=== PATIENT | male | born 1995 | race African-American/Black ===

== ENCOUNTER 2021-11-25 21:47 | Inpatient (IN) | payer OTHER, SELFPAY ==
[~2021-11-25 21:47] MED LIST: ISOVUE-370 76%-LOCM 1 ML ONE
[2021-11-25] MEDS ORDERED: Boostrix 0.5 ML (Tdap) VIAL ONE (21:53)
[2021-11-25] MEDS ORDERED: Ketamine 50 MG/ML (10ML VIAL) ONE ×2 (21:55→22:28)
[2021-11-25] MEDS ORDERED: Midazolam HCl 2 mg/2 ml Vial ONE (22:28)
[2021-11-25] MEDS ORDERED: fentaNYL Citrate/PF 100 MCG/2 ML SYRINGE ONE (22:28)
[2021-11-25] MEDS ORDERED: Neomycin-Polymyxin 1 ML AMP ONE (22:45)
[2021-11-25] MEDS ORDERED: Ondansetron ODT 4 MG TAB PO PRN (22:54)
[2021-11-25] MEDS ORDERED: Dextrose 5% in Water 1,000 ML IV PRN (22:54)
[2021-11-25] MEDS ORDERED: Morphine 4 MG/ML VIAL SLOW IVP PRN (22:54)
[2021-11-25] MEDS ORDERED: hydrALAZINE 20 MG/ML VIAL SLOW IVP PRN (22:54)
[2021-11-25] MEDS ORDERED: Ondansetron PF 4 MG/2 ML Vial IVP PRN (22:54)
[2021-11-25] MEDS ORDERED: Dextrose 50% Abboject 50 ML SYRINGE SLOW IVP PRN (22:54)
[2021-11-25] MEDS ORDERED: Morphine 2 MG/ML VIAL SLOW IVP PRN (22:54)
[2021-11-25] MEDS ORDERED: Sodium Chloride 0.9% 1,000 ML IV SCH (23:00)
[2021-11-25 23:03] LABS: Hemoglobin 15.2 g/dL (14.0-18.0); Mean Corpuscular HGB CONC 32.7 g/dL (32.0-36.0); Mean Corpuscular Hemoglobin 30.7 pg (27.0-31.0); Mean Corpuscular Volume 93.8 fL (78.0-98.0); Platelet Count 179 thou/uL (130-400); RBC Distribution Width 11.8 % (11.5-14.5); Red Blood Cell (RBC) Count 4.96 mill/uL (4.70-6.10); White Blood Cell (WBC) Count 20.7 thou/uL (4.8-10.8)
[2021-11-25] MEDS ORDERED: traMADol HCl 50 MG TAB PO PRN (23:06)
[2021-11-25] MEDS ORDERED: Cyclobenzaprine 10 MG TAB PO PRN (23:06)
[2021-11-25 23:11] LABS: INR-International Normal Ratio 1.2; PTT 24.4 sec (22.9-36.1); Prothrombin Time 15.7 sec (12.0-14.7)
[2021-11-25] MEDS ORDERED: CEFAZOLIN 2 GM in Sodium Chloride 0.9% 100 ML IVPB SCH (23:15)
[2021-11-25 23:20] LABS: SARS-CoV-2 NAA Rapid Test Not Detected (NotDetected)
[2021-11-25 23:22] LABS: ALT (SGPT) 26 U/L (8-55); AST (SGOT) 32 U/L (5-34); Albumin 4.1 g/dL (3.5-5.0); Alcohol Less than 10 mg/dL (Less than 10); Alkaline Phosphatase 54 U/L (40-110); Anion Gap 17 mmol/L (10-20); BUN (Urea Nitrogen) 16 mg/dL (8.9-20.6); Bilirubin, Total 1.3 mg/dL (0.2-1.2); Calc. Creatinine Clearance 0 mL/min (70-130); Calcium 8.9 mg/dL (7.8-10.44); Carbon Dioxide 20 mmol/L (22-29); Chloride 104 mmol/L (98-107); Globulin 2.9 g/dL (2.4-3.5); Glucose 118 mg/dL (70-105); Lipase 35 U/L (8-78); Sodium 138 mmol/L (136-145)
[2021-11-25 23:24] LABS: Band 9 % (5-11); Lymphocytes 6 % (21-51); MDiff Complete? YES; Metamyelocyte 1 % (0-0); Monocytes 7 % (0-10); Neutrophil 75 % (42-75); Reactive Lymphocytes 2 % (0-10)
[2021-11-25 23:28] LABS: Potassium 2.9 mmol/L (3.5-5.1)
[2021-11-25] MEDS ORDERED: TETANUS AND DIPHTHERIA TOX/PF 0.5 ML DISP.SYRIN IM ONE (23:30)
[2021-11-25] MEDS ORDERED: Tranexamic Acid 1,000 MG/10 ML VIAL ONE (23:34)
[2021-11-25] MEDS ORDERED: HYDROmorphone 2 MG/ML VIAL ONE (23:37)
[2021-11-26] MEDS ORDERED: Ondansetron HCl/PF 4 MG/2 ML Vial IVP PRN (01:03)
[2021-11-26] MEDS ORDERED: Promethazine HCl 25 MG/ML VIAL IVPB PRN (01:03)
[2021-11-26] MEDS ORDERED: HYDROmorphone 2 MG/ML VIAL SLOW IVP PRN (01:03)
[2021-11-26] MEDS ORDERED: Meperidine HCl/PF 25 MG/ML VIAL SLOW IVP PRN (01:03)
[2021-11-26] MEDS ORDERED: Promethazine HCl 25 MG/ML VIAL IM PRN (01:03)
[2021-11-26] MEDS ORDERED: Meperidine HCl/PF 25 MG/ML VIAL ONE (01:17)
[2021-11-26] MEDS ORDERED: HYDROmorphone 0.5 MG/0.5 ML SYRINGE ONE ×2 (01:36→02:24)
[2021-11-26] MEDS ORDERED: Fentanyl 100 MCG/2 ML VIAL ONE (01:36)
[2021-11-26] MEDS: Acetaminophen 500 MG TAB PO SCH ×5 (03:30→23:45)
[2021-11-26] MEDS: traMADol HCl 50 MG TAB PO SCH ×5 (03:30→23:45)
[2021-11-26] MEDS: Potassium Chloride 20 MEQ in Premix Bag 1 BAG IVPB SCH ×2 (03:31→04:51)
[2021-11-26 03:44] VITALS: BMI 24.3
[2021-11-26 04:50] LABS: Lactic Acid 4.1 mmol/L (0.5-2.2)
[2021-11-26] MEDS ORDERED: Sodium Chloride 0.9% 1,000 ML IV SCH (05:45)
[2021-11-26 05:48] LABS: #Lymphocytes 0.5 thou/uL (1.20-3.40); #Monocytes 0.3 thou/uL (0.11-0.59); #Neutrophils 13.3 thou/uL (1.40-6.50); %Eosinophils 0.3 % (0.0-10.0); %Lymphocytes 3.3 % (21.0-51.0); %Monocytes 1.8 % (0.0-10.0); %Neutrophils 94.6 % (42.0-75.0); Hemoglobin 14.1 g/dL (14.0-18.0); Mean Corpuscular Hemoglobin 30.8 pg (27.0-31.0); Mean Corpuscular Volume 96.4 fL (78.0-98.0); Mean Platelet Volume 9.4 fL (7.4-10.4); Platelet Count 128 thou/uL (130-400); RBC Distribution Width 11.8 % (11.5-14.5); Red Blood Cell (RBC) Count 4.59 mill/uL (4.70-6.10); White Blood Cell (WBC) Count 14.1 thou/uL (4.8-10.8)
[2021-11-26 07:43] LABS: Magnesium 1.7 mg/dL (1.6-2.6); Phosphorus 3.1 mg/dL (2.3-4.7)
[2021-11-26 08:06] LABS: Anion Gap 13 mmol/L (10-20); BUN (Urea Nitrogen) 12 mg/dL (8.9-20.6); Calc. Creatinine Clearance 121 mL/min (70-130); Calcium 8.3 mg/dL (7.8-10.44); Carbon Dioxide 23 mmol/L (22-29); Chloride 105 mmol/L (98-107); Glucose 140 mg/dL (70-105); Potassium 4.7 mmol/L (3.5-5.1); Sodium 136 mmol/L (136-145)
[2021-11-26] MEDS: Gabapentin 300 MG CAP PO SCH ×3 (08:11→20:43)
[2021-11-26] MEDS: Senokot S 8.6-50 MG TAB PO SCH ×2 (08:11→20:42)
[2021-11-26] MEDS: Famotidine 20 MG TAB PO SCH ×2 (08:11→20:43)
[2021-11-26] MEDS: Polyethylene Glycol 3350 17 GM Packet PO SCH (08:12)
[2021-11-26] MEDS ORDERED: Magnesium 2 GM/50 ML(in water) 2 GM in Premix Bag 1 BAG IVPB SCH (09:30)
[2021-11-26] MEDS ORDERED: PHOS-NAK 1 PKT PACK PO SCH (09:30)
[2021-11-26] MEDS: Ibuprofen 200 MG TAB PO SCH ×2 (14:29→20:43)
[2021-11-26] MEDS: Enoxaparin Sodium 30 MG/0.3 ML SYRINGE SC SCH (20:50)
[2021-11-26] MEDS ORDERED: Succinylcholine 200 MG/10 ml SYRINGE FS ONE (23:53)
[2021-11-26] MEDS ORDERED: Dexamethasone 20 MG/5 ML VIAL ONE (23:53)
[2021-11-26] MEDS ORDERED: Ondansetron PF 4 MG/2 ML Vial ONE (23:53)
[2021-11-26] MEDS ORDERED: Rocuronium Bromide 10 MG/ML (10ML VIAL) ONE (23:53)
[2021-11-26] MEDS ORDERED: PROPOFOL 200 MG/20 ML VIAL ONE (23:53)
[2021-11-26] MEDS ORDERED: PHENYLEPHRINE-NS 100 MCG/ML 10 ML SYRINGE ONE (23:53)
[2021-11-26] MEDS ORDERED: Lidocaine 1% PF 5 ML VIAL ONE (23:53)
[2021-11-26] MEDS ORDERED: Glycopyrrolate 0.2 MG/ML 5 ML SYRINGE ONE (23:53)
[2021-11-27] MEDS: Ibuprofen 200 MG TAB PO SCH ×2 (05:40→14:17)
[2021-11-27] MEDS: Acetaminophen 500 MG TAB PO SCH ×4 (05:40→23:21)
[2021-11-27] MEDS: traMADol HCl 50 MG TAB PO SCH ×4 (05:42→23:19)
[2021-11-27 06:47] LABS: Anion Gap 10 mmol/L (10-20); BUN (Urea Nitrogen) 15 mg/dL (8.9-20.6); Calc. Creatinine Clearance 123 mL/min (70-130); Calcium 8.3 mg/dL (7.8-10.44); Carbon Dioxide 26 mmol/L (22-29); Chloride 105 mmol/L (98-107); Glucose 117 mg/dL (70-105); Magnesium 2.3 mg/dL (1.6-2.6); Phosphorus 4.1 mg/dL (2.3-4.7); Potassium 3.8 mmol/L (3.5-5.1); Sodium 137 mmol/L (136-145)
[2021-11-27 07:31] LABS: #Eosinphils 0.1 thou/uL (0.0-0.7); #Lymphocytes 0.7 thou/uL (1.20-3.40); #Monocytes 0.2 thou/uL (0.11-0.59); #Neutrophils 3.4 thou/uL (1.40-6.50); %Basophils 0.3 % (0.0-1.0); %Eosinophils 1.6 % (0.0-10.0); %Lymphocytes 16.5 % (21.0-51.0); %Monocytes 3.6 % (0.0-10.0); Hemoglobin 10.4 g/dL (14.0-18.0); Mean Corpuscular HGB CONC 34.1 g/dL (32.0-36.0); Mean Corpuscular Hemoglobin 32.1 pg (27.0-31.0); Mean Platelet Volume 8.2 fL (7.4-10.4); Platelet Count 93 thou/uL (130-400); Platelet Morphology Comment Appears Decreased; RBC Distribution Width 11.7 % (11.5-14.5); RBC Morphology Normal; Red Blood Cell (RBC) Count 3.24 mill/uL (4.70-6.10); White Blood Cell (WBC) Count 4.4 thou/uL (4.8-10.8)
[2021-11-27] MEDS: Polyethylene Glycol 3350 17 GM Packet PO SCH (08:29)
[2021-11-27] MEDS: Enoxaparin Sodium 30 MG/0.3 ML SYRINGE SC SCH ×2 (08:29→20:18)
[2021-11-27] MEDS: Senokot S 8.6-50 MG TAB PO SCH ×2 (08:30→20:16)
[2021-11-27] MEDS: Famotidine 20 MG TAB PO SCH ×2 (08:30→20:16)
[2021-11-27] MEDS: Gabapentin 300 MG CAP PO SCH ×3 (08:30→20:15)
[2021-11-27] MEDS ORDERED: diphenhydrAMINE 50 MG/ML VIAL IVP PRN (10:28)
[2021-11-28] MEDS: Acetaminophen 500 MG TAB PO SCH ×4 (05:18→23:39)
[2021-11-28] MEDS: traMADol HCl 50 MG TAB PO SCH ×4 (05:19→23:40)
[2021-11-28] MEDS: Ibuprofen 200 MG TAB PO SCH ×4 (05:57→21:45)
[2021-11-28 05:59] LABS: #Eosinphils 0.2 thou/uL (0.0-0.7); #Lymphocytes 1.1 thou/uL (1.20-3.40); #Monocytes 0.2 thou/uL (0.11-0.59); #Neutrophils 2.3 thou/uL (1.40-6.50); %Basophils 0.6 % (0.0-1.0); %Eosinophils 5.6 % (0.0-10.0); %Lymphocytes 29.3 % (21.0-51.0); %Monocytes 4.5 % (0.0-10.0); %Neutrophils 60.1 % (42.0-75.0); Hemoglobin 9.5 g/dL (14.0-18.0); Mean Corpuscular HGB CONC 33.7 g/dL (32.0-36.0); Mean Corpuscular Hemoglobin 31.8 pg (27.0-31.0); Mean Corpuscular Volume 94.5 fL (78.0-98.0); Mean Platelet Volume 7.8 fL (7.4-10.4); Platelet Count 82 thou/uL (130-400); RBC Distribution Width 11.5 % (11.5-14.5); Red Blood Cell (RBC) Count 2.97 mill/uL (4.70-6.10); White Blood Cell (WBC) Count 3.8 thou/uL (4.8-10.8)
[2021-11-28] MEDS: Senokot S 8.6-50 MG TAB PO SCH ×2 (09:09→20:40)
[2021-11-28] MEDS: Famotidine 20 MG TAB PO SCH ×2 (09:09→20:40)
[2021-11-28] MEDS: Gabapentin 300 MG CAP PO SCH ×4 (09:09→20:41)
[2021-11-28] MEDS: Polyethylene Glycol 3350 17 GM Packet PO SCH (09:12)
[2021-11-28] MEDS: Morphine 4 MG/ML VIAL SLOW IVP PRN (10:29)
[2021-11-28] MEDS: Enoxaparin Sodium 30 MG/0.3 ML SYRINGE SC SCH ×2 (10:33→20:38)
[2021-11-29] MEDS: Acetaminophen 500 MG TAB PO SCH ×4 (05:07→23:15)
[2021-11-29] MEDS: traMADol HCl 50 MG TAB PO SCH ×4 (05:07→23:15)
[2021-11-29] MEDS: Ibuprofen 200 MG TAB PO SCH ×3 (05:10→21:05)
[2021-11-29 06:27] LABS: #Eosinphils 0.2 thou/uL (0.0-0.7); #Lymphocytes 1.2 thou/uL (1.20-3.40); #Monocytes 0.2 thou/uL (0.11-0.59); #Neutrophils 2.3 thou/uL (1.40-6.50); %Basophils 0.9 % (0.0-1.0); %Eosinophils 5.6 % (0.0-10.0); %Lymphocytes 30.5 % (21.0-51.0); %Monocytes 4.7 % (0.0-10.0); %Neutrophils 58.4 % (42.0-75.0); Hemoglobin 9.1 g/dL (14.0-18.0); Mean Corpuscular Volume 94.1 fL (78.0-98.0); Mean Platelet Volume 7.9 fL (7.4-10.4); Platelet Count 115 thou/uL (130-400); RBC Distribution Width 11.4 % (11.5-14.5); Red Blood Cell (RBC) Count 2.85 mill/uL (4.70-6.10); White Blood Cell (WBC) Count 3.9 thou/uL (4.8-10.8)
[2021-11-29 06:35] LABS: Anion Gap 13 mmol/L (10-20); BUN (Urea Nitrogen) 11 mg/dL (8.9-20.6); Calc. Creatinine Clearance 145 mL/min (70-130); Calcium 8.7 mg/dL (7.8-10.44); Carbon Dioxide 26 mmol/L (22-29); Chloride 104 mmol/L (98-107); Glucose 107 mg/dL (70-105); Magnesium 1.8 mg/dL (1.6-2.6); Phosphorus 3.5 mg/dL (2.3-4.7); Sodium 139 mmol/L (136-145)
[2021-11-29] MEDS: Famotidine 20 MG TAB PO SCH ×2 (07:51→21:05)
[2021-11-29] MEDS: Gabapentin 300 MG CAP PO SCH ×3 (07:52→21:05)
[2021-11-29] MEDS: Senokot S 8.6-50 MG TAB PO SCH ×2 (07:53→21:04)
[2021-11-29] MEDS: Polyethylene Glycol 3350 17 GM Packet PO SCH (07:55)
[2021-11-29] MEDS: Enoxaparin Sodium 30 MG/0.3 ML SYRINGE SC SCH ×2 (07:55→21:06)
[2021-11-29] MEDS ORDERED: Magnesium 2 GM/50 ML(in water) 2 GM in Premix Bag 1 BAG IVPB SCH (08:00)
[2021-11-29] MEDS ORDERED: PHOS-NAK 1 PKT PACK PO SCH (08:00)
[2021-11-29] MEDS ORDERED: Fentanyl 100 MCG/2 ML VIAL ONE ×3 (11:45→16:54)
[2021-11-29] MEDS ORDERED: Midazolam HCl 2 mg/2 ml Vial ONE (11:45)
[2021-11-29] MEDS ORDERED: fentaNYL Citrate/PF 100 MCG/2 ML SYRINGE ONE (12:09)
[2021-11-29] MEDS ORDERED: Lidocaine 2% Jelly 5 ML TUBE ONE (12:10)
[2021-11-29] MEDS ORDERED: Sodium Chloride 0.9% 100 ML ONE (12:17)
[2021-11-29] MEDS ORDERED: CEFAZOLIN 2 GM VIAL ONE (12:17)
[2021-11-29 15:44] LABS: Hemoglobin 8.1 g/dL (14.0-18.0)
[2021-11-29] MEDS ORDERED: Ondansetron HCl/PF 4 MG/2 ML Vial IVP PRN (15:58)
[2021-11-29] MEDS ORDERED: HYDROmorphone 2 MG/ML VIAL SLOW IVP PRN (15:58)
[2021-11-29] MEDS ORDERED: Promethazine HCl 25 MG/ML VIAL IM PRN (15:58)
[2021-11-29] MEDS ORDERED: Promethazine HCl 25 MG/ML VIAL IVPB PRN (15:58)
[2021-11-29] MEDS ORDERED: Meperidine HCl/PF 25 MG/ML VIAL ONE (16:34)
[2021-11-29] MEDS ORDERED: HYDROmorphone 2 MG/ML VIAL ONE ×2 (16:59→17:29)
[2021-11-29] MEDS ORDERED: Acetaminophen 500 MG TAB ONE (17:16)
[2021-11-29] MEDS ORDERED: Ketorolac Tromethamine 30 MG/ML VIAL ONE (17:17)
[2021-11-29] MEDS ORDERED: Ketorolac Tromethamine 30 MG/ML VIAL IVP SCH (18:15)
[2021-11-29] MEDS ORDERED: Acetaminophen 500 MG TAB PO SCH (18:15)
[2021-11-29] MEDS ORDERED: HYDROmorphone 0.5 MG/0.5 ML SYRINGE SLOW IVP SCH (18:45)
[2021-11-29] MEDS: CEFAZOLIN 2 GM in Sodium Chloride 0.9% 100 ML IVPB SCH (21:06)
[2021-11-30] MEDS: traMADol HCl 50 MG TAB PO SCH (05:14)
[2021-11-30] MEDS: CEFAZOLIN 2 GM in Sodium Chloride 0.9% 100 ML IVPB SCH ×3 (05:14→21:56)
[2021-11-30] MEDS: Acetaminophen 500 MG TAB PO SCH ×4 (05:15→20:22)
[2021-11-30] MEDS: Ibuprofen 200 MG TAB PO SCH (05:16)
[2021-11-30 06:08] LABS: #Lymphocytes 1.2 thou/uL (1.20-3.40); #Monocytes 0.5 thou/uL (0.11-0.59); #Neutrophils 5.5 thou/uL (1.40-6.50); %Basophils 0.4 % (0.0-1.0); %Eosinophils 0.6 % (0.0-10.0); %Lymphocytes 16.3 % (21.0-51.0); %Monocytes 6.5 % (0.0-10.0); %Neutrophils 76.4 % (42.0-75.0); Hemoglobin 7.8 g/dL (14.0-18.0); Mean Corpuscular HGB CONC 32.7 g/dL (32.0-36.0); Mean Corpuscular Hemoglobin 30.4 pg (27.0-31.0); Mean Corpuscular Volume 92.8 fL (78.0-98.0); Mean Platelet Volume 7.7 fL (7.4-10.4); Platelet Count 177 thou/uL (130-400); RBC Distribution Width 11.4 % (11.5-14.5); Red Blood Cell (RBC) Count 2.58 mill/uL (4.70-6.10); White Blood Cell (WBC) Count 7.2 thou/uL (4.8-10.8)
[2021-11-30 06:29] LABS: Anion Gap 10 mmol/L (10-20); BUN (Urea Nitrogen) 10 mg/dL (8.9-20.6); Calc. Creatinine Clearance 142 mL/min (70-130); Calcium 8.8 mg/dL (7.8-10.44); Carbon Dioxide 28 mmol/L (22-29); Chloride 103 mmol/L (98-107); Glucose 100 mg/dL (70-105); Magnesium 2.2 mg/dL (1.6-2.6); Phosphorus 3.4 mg/dL (2.3-4.7); Potassium 4.2 mmol/L (3.5-5.1); Sodium 137 mmol/L (136-145)
[2021-11-30] MEDS: Ascorbic Acid 500 mg Chewable Tablet PO SCH ×2 (09:38→20:22)
[2021-11-30] MEDS: Ferrous Sulfate 325 MG TAB PO SCH ×2 (09:42→20:23)
[2021-11-30] MEDS: Gabapentin 300 MG CAP PO SCH ×3 (09:43→20:23)
[2021-11-30] MEDS: Polyethylene Glycol 3350 17 GM Packet PO SCH (09:44)
[2021-11-30] MEDS: Famotidine 20 MG TAB PO SCH ×2 (09:44→20:23)
[2021-11-30] MEDS: Senokot S 8.6-50 MG TAB PO SCH ×2 (09:44→20:22)
[2021-11-30] MEDS: Enoxaparin Sodium 30 MG/0.3 ML SYRINGE SC SCH ×2 (09:45→20:24)
[2021-11-30] MEDS: Morphine 4 MG/ML VIAL SLOW IVP PRN (09:45)
[2021-11-30] MEDS ORDERED: Ibuprofen 200 MG TAB PO SCH (10:00)
[2021-11-30] MEDS ORDERED: traMADol HCl 50 MG TAB PO SCH (12:00)
[2021-11-30] MEDS ORDERED: traMADol HCl 50 MG TAB PO PRN (12:39)
[2021-11-30] MEDS ORDERED: Acetaminophen/Codeine 30-300mg Tablet PO SCH (13:00)
[2021-11-30] MEDS ORDERED: Zolpidem Tartrate 5 MG TAB PO PRN (13:35)
[2021-11-30] MEDS ORDERED: diphenhydrAMINE 25 MG CAP PO PRN (13:35)
[2021-11-30] MEDS ORDERED: Naloxone HCl 0.4 mg/ml Vial IV PRN (13:35)
[2021-11-30] MEDS ORDERED: diphenhydrAMINE 50 MG/ML VIAL IVP PRN (13:35)
[2021-11-30] MEDS ORDERED: Promethazine HCl 25 MG/ML VIAL IM PRN (13:35)
[2021-11-30] MEDS ORDERED: Ondansetron PF 4 MG/2 ML Vial IVP PRN (13:35)
[2021-11-30] MEDS ORDERED: HYDROmorphone 10 mg/100 ml CADD IVPB PRN (13:35)
[2021-11-30] MEDS ORDERED: diphenhydrAMINE 50 MG/ML VIAL IM PRN (13:35)
[2021-11-30] MEDS ORDERED: Communication Order-Pharmacy FS SCH (13:45)
[2021-11-30] MEDS ORDERED: HYDROmorphone/PF 10 MG in Sodium Chloride 0.9% 99 ML IVPB PRN (14:30)
[2021-11-30] MEDS: Ketorolac Tromethamine 30 MG/ML VIAL IVP SCH ×2 (14:57→18:49)
[2021-11-30] MEDS: tiZANidine HCl 4 MG TAB PO SCH ×2 (14:57→20:21)
[2021-11-30] MEDS ORDERED: Sodium Chloride 0.9% 1,000 ML IV SCH (15:15)
[2021-12-01] MEDS: Ketorolac Tromethamine 30 MG/ML VIAL IVP SCH ×3 (00:47→14:08)
[2021-12-01] MEDS: tiZANidine HCl 4 MG TAB PO SCH ×4 (00:47→20:29)
[2021-12-01] MEDS: Acetaminophen 500 MG TAB PO SCH ×4 (02:57→20:29)
[2021-12-01] MEDS: CEFAZOLIN 2 GM in Sodium Chloride 0.9% 100 ML IVPB SCH ×2 (06:08→14:00)
[2021-12-01 06:38] LABS: Hemoglobin 7.5 g/dL (14.0-18.0)
[2021-12-01] MEDS: Polyethylene Glycol 3350 17 GM Packet PO SCH (09:15)
[2021-12-01] MEDS: Senokot S 8.6-50 MG TAB PO SCH ×2 (09:19→20:29)
[2021-12-01] MEDS: Ascorbic Acid 500 mg Chewable Tablet PO SCH ×2 (09:19→20:29)
[2021-12-01] MEDS: Famotidine 20 MG TAB PO SCH ×2 (09:19→20:28)
[2021-12-01] MEDS: Gabapentin 300 MG CAP PO SCH ×3 (09:19→20:27)
[2021-12-01] MEDS: Ferrous Sulfate 325 MG TAB PO SCH ×2 (09:20→20:26)
[2021-12-01] MEDS: Enoxaparin Sodium 30 MG/0.3 ML SYRINGE SC SCH ×2 (09:47→20:31)
[2021-12-01] MEDS: Ibuprofen 200 MG TAB PO SCH (20:30)
[2021-12-02] MEDS: Acetaminophen 500 MG TAB PO SCH ×4 (02:25→20:55)
[2021-12-02] MEDS: tiZANidine HCl 4 MG TAB PO SCH ×4 (02:26→20:54)
[2021-12-02] MEDS: traMADol HCl 50 MG TAB PO SCH ×3 (05:31→17:41)
[2021-12-02] MEDS: Ibuprofen 200 MG TAB PO SCH ×3 (05:32→20:54)
[2021-12-02 05:42] LABS: Hemoglobin 6.7 g/dL (14.0-18.0)
[2021-12-02] MEDS ORDERED: Morphine 2 MG/ML VIAL SLOW IVP PRN (06:00)
[2021-12-02] MEDS: Gabapentin 300 MG CAP PO SCH ×3 (07:56→20:55)
[2021-12-02] MEDS: Enoxaparin Sodium 30 MG/0.3 ML SYRINGE SC SCH (07:56)
[2021-12-02] MEDS: Polyethylene Glycol 3350 17 GM Packet PO SCH (07:57)
[2021-12-02] MEDS: Senokot S 8.6-50 MG TAB PO SCH ×2 (07:57→20:54)
[2021-12-02] MEDS: Ferrous Sulfate 325 MG TAB PO SCH ×2 (07:58→20:54)
[2021-12-02] MEDS: Famotidine 20 MG TAB PO SCH ×2 (07:58→20:55)
[2021-12-02] MEDS: Ascorbic Acid 500 mg Chewable Tablet PO SCH ×2 (07:58→20:55)
[2021-12-02 08:50] LABS: Hemoglobin 6.7 g/dL (14.0-18.0)
[2021-12-02] MEDS: Enoxaparin Sodium 40 MG/0.4 ML SYRINGE SC SCH (09:39)
[2021-12-02 15:10] LABS: Hemoglobin 7.3 g/dL (14.0-18.0); Mean Corpuscular HGB CONC 32.5 g/dL (32.0-36.0); Mean Corpuscular Hemoglobin 30.5 pg (27.0-31.0); Mean Platelet Volume 7.4 fL (7.4-10.4); Platelet Count 191 thou/uL (130-400); Red Blood Cell (RBC) Count 2.39 mill/uL (4.70-6.10)
[2021-12-02 15:42] LABS: White Blood Cell (WBC) Count 7.2 thou/uL (4.8-10.8)
[2021-12-02 15:43] LABS: Band 4 % (5-11); Basophilic Stippling SLIGHT = 1-2 cells (100X) (None Seen); Eosinophils 3 % (0-10); Lymphocytes 26 % (21-51); MDiff Complete? YES; Monocytes 10 % (0-10); Myelocyte 2 % (0-0); Neutrophil 54 % (42-75); Platelet Morphology Comment Appears Adequate; Polychromasia MODERATE = 3-4 cells (100X) (0-2/hpf); Reactive Lymphocytes 1 % (0-10)
[2021-12-03] MEDS: tiZANidine HCl 4 MG TAB PO SCH ×3 (00:57→14:07)
[2021-12-03] MEDS: traMADol HCl 50 MG TAB PO SCH ×4 (00:57→17:54)
[2021-12-03] MEDS: Acetaminophen 500 MG TAB PO SCH ×3 (03:49→14:07)
[2021-12-03] MEDS: Ibuprofen 200 MG TAB PO SCH ×2 (05:31→14:08)
[2021-12-03 06:51] LABS: #Eosinphils 0.3 thou/uL (0.0-0.7); #Lymphocytes 1.6 thou/uL (1.20-3.40); #Monocytes 0.5 thou/uL (0.11-0.59); #Neutrophils 4.1 thou/uL (1.40-6.50); %Basophils 0.5 % (0.0-1.0); %Eosinophils 4.9 % (0.0-10.0); %Lymphocytes 24.4 % (21.0-51.0); %Monocytes 6.9 % (0.0-10.0); %Neutrophils 63.3 % (42.0-75.0); Hemoglobin 7.5 g/dL (14.0-18.0); Mean Corpuscular HGB CONC 32.4 g/dL (32.0-36.0); Mean Corpuscular Hemoglobin 30.4 pg (27.0-31.0); Mean Corpuscular Volume 93.9 fL (78.0-98.0); Mean Platelet Volume 7.6 fL (7.4-10.4); Platelet Count 214 thou/uL (130-400); RBC Distribution Width 13.4 % (11.5-14.5); Red Blood Cell (RBC) Count 2.48 mill/uL (4.70-6.10); White Blood Cell (WBC) Count 6.5 thou/uL (4.8-10.8)
[2021-12-03] MEDS: Gabapentin 300 MG CAP PO SCH ×2 (08:33→14:07)
[2021-12-03] MEDS: Famotidine 20 MG TAB PO SCH (08:34)
[2021-12-03 08:35] VITALS: TEMP 98
[2021-12-03] MEDS: Enoxaparin Sodium 40 MG/0.4 ML SYRINGE SC SCH (08:35)
[2021-12-03] MEDS: Ascorbic Acid 500 mg Chewable Tablet PO SCH (08:35)
[2021-12-03] MEDS: Polyethylene Glycol 3350 17 GM Packet PO SCH (08:35)
[2021-12-03] MEDS: Senokot S 8.6-50 MG TAB PO SCH (08:35)
[2021-12-03] MEDS: Ferrous Sulfate 325 MG TAB PO SCH (08:35)
[2021-12-03] MEDS: cloNIDine 0.1 MG TAB PO SCH ×2 (11:13→17:53)
[2021-12-03 17:54] VITALS: BP 126/78
== END 2021-12-03 19:25 | disposition home or self-care (01) | DRG 956 ==
LOC: ERS 21:47 → SDC/OP 23:50 → T4-A 23:51
PROVIDERS: ADMIT Specialist; ATTEND Surgery
PROC: 0QHC05Z Insertion of External Fixation Device into Left Lower Femur, Open Approach (ICD-10-PCS; 2021-11-25)
PROC: 0YQN0ZZ Repair Left Foot, Open Approach (ICD-10-PCS; 2021-11-25)
PROC: 0QSC04Z Reposition Left Lower Femur with Internal Fixation Device, Open Approach (ICD-10-PCS; principal; 2021-11-29)
PROC: 0QB90ZZ Excision of Left Femoral Shaft, Open Approach (ICD-10-PCS; 2021-11-29)
PROC: 0QPCX5Z Removal of External Fixation Device from Left Lower Femur, External Approach (ICD-10-PCS; 2021-11-29)
PROC: 0YH Anatomical Regions, Lower Extremities, Insertion (ICD-10-PCS; 2021-11-29)
PROC: 30233N1 Transfusion of Nonautologous Red Blood Cells into Peripheral Vein, Percutaneous Approach (ICD-10-PCS; 2021-12-02)
DX: S72.462 Displaced supracondylar fracture with intracondylar extension of lower end of left femur (principal); S27.322A Contusion of lung, bilateral, initial encounter; D62 Acute posthemorrhagic anemia; Z20.822 Contact with and (suspected) exposure to COVID-19; Z23 Encounter for immunization; S91.312A Laceration without foreign body, left foot, initial encounter; S01.01XA Laceration without foreign body of scalp, initial encounter; M89.552 Osteolysis, left thigh; E87.6 Hypokalemia; V67.5XXA Driver of heavy transport vehicle injured in collision with fixed or stationary object in traffic accident, initial encounter; Y92.410 Unspecified street and highway as the place of occurrence of the external cause
CPT/HCPCS: 36415; 36430; 70450; 71045; 71260; 72125; 72170; 74177; 76000; 80048; 80053; 80307; 83605; 83690; 83735; 84100; 85014; 85018; 85025; 85610; 85730; 86850; 86900; 86901; 90471; 90715; 93005; 96374; 96375; C1713; C1776; G0390; J0690; J1100; J1170; J1200; J1650; J1885; J2175; J2250; J2270; J2405; J2704; J3010; J3475; J3480; J3490; J7050; P9016; Q9966; U0002; U0003; U0005